=== PATIENT | male | born 1960 | race Two or more races ===

== ENCOUNTER 2019-03-11 06:21 | Inpatient (IN) | payer OTHER ==
[~2019-03-11] VITALS: Ht 185.4 cm; Wt 148.6 kg
[2019-03-11 06:33] VITALS: Ht 185.4 cm; Wt 148.6 kg
[2019-03-11 07:50] LABS: PLATELET COUNT 283 x10^3mcL (130-400)
[2019-03-11 07:54] LABS: RED CELL DISTRIBUTION WIDTH 14.6 % (11.5-14.5)
[2019-03-11 08:24] LABS: BAND NEUTROPHIL 0 % (0-10); BASOPHIL 0 % (0-2); MONOCYTE 6 % (0-7); SEGMENTED NEUTROPHILS 90 % (37-75)
[2019-03-11 08:26] LABS: PLATELET MORPHOLOGY PLATELETS INCREASED; rbc morphology (normal/abnorm) ABNORMAL (NORMAL)
[2019-03-11 08:32] LABS: CARBON DIOXIDE 31.5 mmol/L (21-32); CHLORIDE SERUM 94 mmol/L (98-107); GLUCOSE SERUM 114 mg/dL (74-106); POTASSIUM SERUM 3.1 mmol/L (3.5-5.1); SODIUM SERUM 134 mmol/L (136-145)
[2019-03-11 08:33] LABS: ALBUMIN 3.3 g/dL (3.4-5.0); ALKALINE PHOSPHATASE 66 U/L (46-116); ALT/SGPT 14 U/L (16-63); AST/SGOT 10 U/L (15-37); BILIRUBIN TOTAL 0.64 mg/dL (0.20-1.00); CALCIUM 9.4 mg/dL (8.5-10.1); CREATININE SERUM 1.1 mg/dL (0.7-1.3); GFR1 > 60 mL/min; LIPASE 1041 IU/L (73-393)
[2019-03-11 11:51] LABS: MAGNESIUM 2.2 mg/dL (1.8-2.4); PHOSPHOROUS 3.6 mg/dL (2.5-4.9)
[2019-03-11 12:37] VITALS: BP 178/76
[2019-03-11 16:50] VITALS: BP 164/106
[2019-03-11 19:35] LABS: microscopic required? YES; urine erythrocyte TRACE (NEGATIVE)
[2019-03-11 21:05] VITALS: BP 149/85
[2019-03-12 06:20] VITALS: BP 144/96
[2019-03-12 08:34] LABS: BASOPHIL % 0.3 % (0-2); PLATELET COUNT 261 x10^3mcL (130-400)
[2019-03-12 08:38] LABS: RED CELL DISTRIBUTION WIDTH 14.9 % (11.5-14.5)
[2019-03-12 08:46] LABS: CALCIUM 8.8 mg/dL (8.5-10.1); CARBON DIOXIDE 29.3 mmol/L (21-32); CHLORIDE SERUM 103 mmol/L (98-107); CREATININE SERUM 1.1 mg/dL (0.7-1.3); GFR1 > 60 mL/min; GLUCOSE SERUM 111 mg/dL (74-106); LIPASE 654 IU/L (73-393); POTASSIUM SERUM 3.6 mmol/L (3.5-5.1); SODIUM SERUM 139 mmol/L (136-145)
[2019-03-12 09:21] VITALS: BP 178/113
[2019-03-12 16:36] VITALS: BP 199/116
[2019-03-12 18:45] VITALS: BP 164/106
[2019-03-12 20:10] VITALS: BP 173/103
[2019-03-13 05:55] VITALS: BP 180/112
[2019-03-13 06:14] LABS: BASOPHIL % 0.3 % (0-2); PLATELET COUNT 222 x10^3mcL (130-400)
[2019-03-13 06:46] VITALS: BP 175/110
[2019-03-13 07:10] LABS: RED CELL DISTRIBUTION WIDTH 14.7 % (11.5-14.5)
[2019-03-13 07:54] LABS: CALCIUM 8.6 mg/dL (8.5-10.1); CARBON DIOXIDE 26.3 mmol/L (21-32); CHLORIDE SERUM 108 mmol/L (98-107); GFR1 > 60 mL/min; GLUCOSE SERUM 109 mg/dL (74-106); LIPASE 634 IU/L (73-393); POTASSIUM SERUM 4.6 mmol/L (3.5-5.1); SODIUM SERUM 143 mmol/L (136-145)
[2019-03-13 08:50] VITALS: BP 170/118
[2019-03-13 10:30] VITALS: BP 160/90
[2019-03-13] MEDS ORDERED: FLO4 PO (10:32)
[2019-03-13] MEDS ORDERED: ELIQUIS5 MG PO (10:32)
[2019-03-13] MEDS ORDERED: TOP50 PO (10:32)
[2019-03-13] MEDS ORDERED: ZES20 PO (10:33)
[2019-03-13] MEDS ORDERED: PROS5 PO (10:36)
[2019-03-13] MEDS ORDERED: APR10 PO (10:36)
[2019-03-13 10:54] VITALS: BP 160/90
== END 2019-03-13 12:48 | disposition home or self-care (01) | DRG 440 ==
LOC: ED 06:21 → MU 10:13
PROVIDERS: Emergency Medicine; ADMIT Student in an Organized Health Care Education/Training Program
DX: K85.90 Acute pancreatitis without necrosis or infection, unspecified (principal); I10 Essential (primary) hypertension; I48.91 Unspecified atrial fibrillation; E87.6 Hypokalemia; Z91.14 Patient's other noncompliance with medication regimen
CPT/HCPCS: G0378; J0360; J1885; J1940; J2270; J2405; J3010; J7030